=== PATIENT | male | born 1950 | race Caucasian/White ===

== ENCOUNTER 2018-06-24 07:32 | Observation (INO) | payer MEDICARE, OTHER ==
[~2018-06-24 07:32] MED LIST: DESFLURANE 15 MIN
[2018-06-24] MEDS ORDERED: POLYMYXIN/BACITRACIN 1L IRRIG (12:17)
[2018-06-24] MEDS ORDERED: METOCLOPRAMIDE 10 MG INJ IV (12:30)
[2018-06-24] MEDS ORDERED: ALBUTEROL 0.083% (NEB) 2.5 MG/3 ML AMP HHN (12:30)
[2018-06-24] MEDS ORDERED: DIPHENHYDRAMINE 50 MG INJ IV (12:30)
[2018-06-24] MEDS ORDERED: HYDROmorphONE 1 MG/5 ML IV SYRINGE IV (12:30)
[2018-06-24] MEDS ORDERED: FENTAnyl 50 MCG/ML VIAL IV ×2 (12:30)
[2018-06-24] MEDS ORDERED: LABETALOL HCL 20MG INJ IV (12:30)
[2018-06-24] MEDS ORDERED: hydrALAzine 20 MG INJ IV (12:30)
[2018-06-24] MEDS ORDERED: FENTAnyl 50 MCG/ML VIAL (12:46)
[2018-06-24] MEDS: BUPIVACAINE 0.25%/EPI (SDV) 30 ML INJ (13:16)
[2018-06-24] MEDS: GELATIN SIZE 100 SPONGE (13:26)
[2018-06-24] MEDS: THROMBIN (BOVINE) 5,000 UNIT VIAL TP (13:26)
[2018-06-24] MEDS: HEMOSTATIC MATRIX SYG ZFS (13:27)
[2018-06-24] MEDS: POLYMYXIN/BACITRACIN 1L IRRIG IRR (13:27)
[2018-06-24] MEDS ORDERED: ROCURONIUM 50 MG INJ (14:51)
[2018-06-24] MEDS ORDERED: PROPOFOL 20 ML (14:51)
[2018-06-24] MEDS ORDERED: SUCCINYLCHOLINE CHLORIDE 100 MG/5 ML SYG IV (14:51)
[2018-06-24] MEDS ORDERED: LIDOCAINE 100 MG SYRINGE (14:51)
[2018-06-24] MEDS ORDERED: SUGAMMADEX SODIUM 200 MG/2 ML VIAL IV (14:51)
[2018-06-24] MEDS ORDERED: CEFAZOLIN 1 GM INJ (14:51)
[2018-06-24] MEDS: HYDROmorphONE 1 MG/5 ML IV SYRINGE IV ×2 (15:27→15:42)
[2018-06-24] MEDS: ONDANSETRON 4 MG INJ IV (15:27)
[2018-06-24] MEDS ORDERED: HYDROCODONE/APAP (5/325) TAB PO (15:30)
[2018-06-24] MEDS ORDERED: AL HYDROX/MG HYDROX/SIMETH 30 ML CUP PO (15:30)
[2018-06-24] MEDS ORDERED: NACL 0.9% 3 ML SYG IV (15:30)
[2018-06-24] MEDS ORDERED: ACETAMINOPHEN 325 MG TAB PO (15:30)
[2018-06-24] MEDS ORDERED: ONDANSETRON 4 MG INJ IV (15:30)
[2018-06-24] MEDS ORDERED: PROCHLORPERAZINE 10 MG TAB PO (15:30)
[2018-06-24] MEDS ORDERED: PROCHLORPERAZINE 10 MG INJ IM (15:30)
[2018-06-24] MEDS ORDERED: NALOXONE (0.4 MG/ML) INJ IV (15:30)
[2018-06-24] MEDS: FENTAnyl 50 MCG/ML VIAL IV ×2 (15:53→16:00)
[2018-06-24] MEDS: MEPERIDINE 25 MG INJ IV (15:53)
[2018-06-24] MEDS: BENAZEPRIL 40 MG TAB PO (16:00)
[2018-06-24] MEDS: ATENOLOL 50 MG TAB PO (16:00)
[2018-06-24] MEDS ORDERED: ALPRAZOLAM 0.25 MG TAB PO (16:00)
[2018-06-24] MEDS ORDERED: DEXTROSE 50% 50 ML SYRINGE IV ×2 (16:30)
[2018-06-24] MEDS ORDERED: GLUCAGON 1 MG INJ IM (16:30)
[2018-06-24] MEDS ORDERED: GLUCOSE GEL 15 GRAM TUBE PO ×2 (16:30)
[2018-06-24] MEDS ORDERED: GLUCOSE GEL 15 GRAM TUBE BUCCAL (16:30)
[2018-06-24] MEDS: CEFAZOLIN 1 GM/50 ML (PMX) 50 ML IVPB ×2 (17:07→23:49)
[2018-06-24] MEDS: HYDROmorphONE 0.5 MG/0.5 ML SYG IV (17:07)
[2018-06-24] MEDS: SOD CHLORIDE 0.9% 1,000 ML IV (17:41)
[2018-06-24] MEDS: INSULIN ASPART [NOVOLOG] 3 ML PEN SC (18:35)
[2018-06-24] MEDS: ALLOPURINOL 100 MG TAB PO (21:26)
[2018-06-25] MEDS: ACCU-CHEK XX (01:56)
[2018-06-25] MEDS: SOD CHLORIDE 0.9% 1,000 ML IV (04:22)
[2018-06-25 05:22] LABS: HEMATOCRIT 46.3 % (42.0-52.0); HEMOGLOBIN 15.6 g/dl (14.0-18.0)
[2018-06-25] MEDS: CEFAZOLIN 1 GM/50 ML (PMX) 50 ML IVPB ×2 (05:29→12:02)
[2018-06-25 05:57] LABS: ANION GAP 12 (5-13); BLOOD UREA NITROGEN 27 mg/dl (7-20); CALCIUM 9.7 mg/dl (8.4-10.2); CARBON DIOXIDE 21 mmol/L (21-31); CHLORIDE 107 mmol/L (97-110); Estimated GFR 55 mL/min (>60); GLUCOSE 173 mg/dl (70-220); POTASSIUM 4.3 mmol/L (3.5-5.1); SODIUM 140 mmol/L (135-144)
[2018-06-25] MEDS: LACTATED RINGER'S 1,000 ML IV* (07:37)
[2018-06-25] MEDS: CEFAZOLIN 2 GM/50 ML (PMX) 50 ML IVPB (07:37)
[2018-06-25] MEDS: ALLOPURINOL 100 MG TAB PO (08:42)
[2018-06-25] MEDS: ATENOLOL 50 MG TAB PO (08:42)
[2018-06-25] MEDS: BENAZEPRIL 40 MG TAB PO (08:42)
[2018-06-25] MEDS: DOCUSATE SODIUM 100 MG CAP PO (08:42)
[2018-06-25] MEDS: LINAGLIPTIN 5 MG TABLET PO (08:43)
[2018-06-25] MEDS: GLIMEPIRIDE 2 MG TAB PO (08:43)
[2018-06-25] MEDS: INSULIN ASPART [NOVOLOG] 3 ML PEN SC ×2 (08:52→12:45)
[2018-06-25] MEDS: HYDROCODONE/APAP (5/325) TAB PO (10:47)
== END 2018-06-25 14:34 | disposition home or self-care (01) ==
LOC: SDS 07:32 → REC 15:14 → MS1 16:08
PROVIDERS: Orthopaedic Surgery
DX: M43.16 Spondylolisthesis, lumbar region (principal); E66.9 Obesity, unspecified; M71.38 Other bursal cyst, other site; I10 Essential (primary) hypertension; E11.9 Type 2 diabetes mellitus without complications; Z79.4 Long term (current) use of insulin
CPT/HCPCS: 63047; 72100; 80048; 82962; 85014; 85018; 88304; 97116; 97161; 99217